=== PATIENT | female | born 1955 | race Hispanic/Latino ===

== ENCOUNTER 2017-08-17 20:00 | Emergency (ER) | payer OTHER ==
[~2017-08-17] VITALS: Ht 157.5 cm; Wt 62.6 kg
[~2017-08-17 20:00] MED LIST: ALPRAZOLAM1 M2 PO; AZITHROMYCIN250 M1 PO; CHERATUSSIN AC118 M1 PO; CYCLOBENZAPRINE10 M1 PO; DICLOFENAC SOD100 G1 TOP; DOXYCYCLINE HY100 M4 PO; GUAIFENESIN DM S5 ML PO; LISINOPRIL-HCT1 EAC2 PO; LOSARTAN POTASS25 M1 PO; PROAIR HFA8.5 GM INH; VITAMIN D31000 UNI2 PO; ZITHROMAX250 M2 PO
--- NOTE | 2017-08-17 20:19 | ED DYSPNEA/ASTHMA COMPLAINT ---
History of Present Illness General Chief Complaint: Wheezing/Asthma Stated Complaint: DIFFICULTY BREATHING Source: patient Exam Limitations: no limitations Vital Signs & Intake/Output Vital Signs & Intake/Output Vital Signs Date Time Temp Pulse Resp B/P B/P Pulse O2 O2 Flow FiO2 Mean Ox Delivery Rate 08/17 2229 98.3 98 18 164/88 97 Room Air 08/17 2228 Room Air 08/17 2004 97.0 101 20 178/90 95 Allergies Coded Allergies: Penicillins (UNKNOWN 06/22/17) Reconcile Medications Codeine Phosphate/Guaifenesi (Cheratussin AC Syrup) 10 MG-100 MG/5 ML LIQUID 10 ML PO Q6-8HR PRN COUGH Losartan Potassium 25 MG TABLET 25 MG PO DAILY blood pressure . Prednisone 10 MG TABLET 1 TAB PO DAILY asthma 4 tabs po x 3 days, 3 tabs po x 3 days, 2 tabs po x 3 days, 1 tab po x 3 days Triage Note: PT TO ED C/O ASTHMA EXACERBATION FOR 2 HRS. ALBUTEROL INH NOT HELPING. INSP/EXP WHEEZES ON AUSCULTATION. INCREASED WOB Triage Nurses Notes Reviewed? yes Onset: Gradual Duration: worse persistent since (2 hours) Timing: recent history Severity: moderate Activities at Onset: none Prior Episodes/Possible Cause: occasional episodes Associated Symptoms: cough HPI: Patient is a 62-year-old female with history of asthma presenting to the emergency department with chief complaint of increasing shortness of breath and wheezing that began 2-3 hours prior to arrival. Recent history similar symptoms. She has been on antibiotics and steroids with relief. She tried using her nebulizer machine prior to arrival without relief in symptoms. Denies chest pain or palpitations. No fevers or chills. She does report that she still coughing slightly from her recent bronchitis. She was also recently diagnosed with a left-sided rib fracture. Denies any increased pain over the left rib. No abdominal pain. No nausea or vomiting. Past History Travel History Traveled to [place] past 21 day No Medical History Any Pertinent Medical History? 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 Hx Contributory? No Review of Systems Review of Systems Constitutional: Reports: no symptoms. Comments Review of systems: See HPI, All other systems negative. Constitutional, no chills fever or weight loss HEENT: No visual changes no sore throat no congestion Cardiovascular: No chest pain ,palpitation , orthopnea or ankle swelling Skin, no jaundice no rashes Respiratory: No sputum or hemoptysis GI: No nausea no vomiting : No dysuria No hematuria Muscle skeletal: no back pain, no neck pain, Neurologic: No numbness no confusion, no headaches Psych: No stress anxiety Immunology: No splenectomy or history of AIDS Physical Exam Physical Exam General Appearance: well developed/nourished, alert, awake, mild distress Respiratory: wheezing Comments: Well-developed well-nourished person in mild to moderate distress HEENT:Pupils equally round and reactive to light and accommodation. Nose is atraumatic. External auditory canal and Tympanic membranes clear. Pharynx normal. No swelling or edema. Neck: Supple, no lymphadenopathy Back: Nontender Cardiovascular: Regular rate and rhythms no murmurs rubs or gallops Respiratory: Chest nontender. Moderate respiratory distress.diffuse inspiratory and expiratory wheezing to auscultation bilaterally Extremity: No edema, no calf tenderness to palpation, normal and equal pulses. Neuro: Alert oriented x3 Skin: No appreciable rash on exposed skin, skin is warm and dry. Psych: Mood and affect is normal, memory and judgment is normal. Core Measures ACS in differential dx? Yes CVA/TIA Diagnosis No Sepsis Present: No Sepsis Focused Exam Completed? No Progress Differential Diagnosis: asthma, bronchitis, costochondritis, CHF, COPD, pneumonia Plan of Care: Orders Procedure Date/time Status Telemetry/Ranch Helper 08/17 2018 Active TROPONIN LEVEL 08/17 2018 Complete MAGNESIUM 08/17 2018 Complete COMPREHENSIVE METABOLIC PANEL 08/17 2018 Complete CBC WITHOUT DIFFERENTIAL 08/17 2018 Complete EKG 08/17 2018 Active Current Medications Sig/Vanessa Start time Last Medication Dose Stop Time Status Admin Magnesium Sulfate 1 GM ONCE ONE 08/17 2029 AC 08/17 (Mag Sulfate in D5) 08/18 0029 2121 Dextrose/Water 100 ML (D5W) Laboratory Tests 08/17/172051: Anion Gap 16, Estimated GFR > 60, BUN/Creatinine Ratio 18.6, Glucose 159 H, Calcium 9.7, Magnesium 1.8, Total Bilirubin 0.5, AST 31, ALT 51, Alkaline Phosphatase 126, Troponin I < 0.01, Total Protein 7.7, Albumin 4.5, Globulin 3.2 , Albumin/Globulin Ratio 1.4, CBC w Diff NO MAN DIFF REQ, RBC 4.75, MCV 87.3, MCH 29.3, RDW 14.8 H, MPV 8.6, Gran % 45.7, Lymphocytes % 38.3, Monocytes % 4.1 , Eosinophils % 11.0 H, Basophils % 0.9, Absolute Granulocytes 4.6, Absolute Lymphocytes 3.8 H, Absolute Monocytes 0.4, Absolute Eosinophils 1.1, Absolute Basophils 0.1, PUBS MCHC 33.5 Patient feeling much improved after IV Solu-Medrol, IV magnesium, breathing treatment. Ambulatory oxygen saturation is around 97%. Lungs clear to auscultation after medications. Patient discharged, she'll follow-up with her primary care physician. Patient nontoxic. Diagnostic Imaging: Viewed by Me: Radiology Read. Discussed w/RAD: Radiology Read. Radiology Impression: PATIENT: VON AKBAR PRESENT AGE: 62 PATIENT ACCOUNT NO: [id number] : 54 LOCATION: [facility] ORDERING PHYSICIAN: Kirti CEDILLO SERVICE DATE: 08/17/17 EXAM TYPE: RAD - XRY-CHEST XRAY, TWO VIEWS EXAMINATION: XR CHEST CLINICAL INFORMATION: Worsening cough, wheeze COMPARISON: 08/13/2017 TECHNIQUE: 2 views of the chest were obtained. FINDINGS: Coarse interstitial prominence. No focal consolidation or mass. No pleural effusion or pneumothorax. Tortuous aorta. Normal heart size. Multilevel degenerative changes of the thoracic spine. Healing left rib fractures. IMPRESSION: No acute pulmonary disease. Chronic prominence of the pulmonary interstitium. DICTATED BY: Darvin Bright MD DATE/TIME DICTATED:04/26 HOSPICE CLINICAL MARKETER:PENELOPE DATE/TIME TRANSCRIBED:08/17/172148 CONFIDENTIAL, DO NOT COPY WITHOUT APPROPRIATE AUTHORIZATION. <Electronically signed in Other Vendor System> SIGNED BY: Darvin Bright MD 08/17/172152 Initial ED EKG: NSR Departure Departure Time of Disposition: 2225 Disposition: HOME OR SELF CARE Condition: Stable Clinical Impression Primary Impression: Bronchitis Referrals: Gorge CEDILLO,Bev Berman (PCP/Family) Additional Instructions: Follow-up with your primary care physician in the next 5-7 days. Take prednisone taper as prescribed. Continue using inhaler as previously directed. Departure Forms: Customer Survey General Discharge Information Prescriptions: Current Visit Scripts Prednisone 1 TAB PO DAILY #30 TAB 4 tabs po x 3 days, 3 tabs po x 3 days, 2 tabs po x 3 days, 1 tab po x 3 days Critical Care Note Critical Care Note Critical Care Time: non-applicable
[2017-08-17 21:02] LABS: ABSOLUTE BASOPHIL COUNT 0.1 /CUMM (0.0-0.2); ABSOLUTE EOSINOPHIL COUNT 1.1 /CUMM (0.0-0.7); ABSOLUTE GRANULOCYTE CT 4.6 /CUMM (1.4-6.5); ABSOLUTE LYMPH COUNT 3.8 /CUMM (1.2-3.4); ABSOLUTE MONOCYTE COUNT 0.4 /CUMM (0.10-0.60); BASOPHIL % 0.9 % (0.0-2.0); GRANULOCYTE % 45.7 % (42.2-75.2); HEMATOCRIT 41.5 % (37-47); MEAN CORPUSCULAR HGB 29.3 PG (27.0-31.0); MEAN CORPUSCULAR HGB CONC 33.5 G/DL (33.0-37.0); MEAN CORPUSCULAR VOLUME 87.3 FL (81.0-99.0); MEAN PLATELET VOLUME 8.6 FL (7.4-10.4); PLATELET COUNT 251 /CUMM (130-400); RBC DISTRIBUTION WIDTH 14.8 % (11.5-14.5); RED BLOOD CELL CT 4.75 /CUMM (4.20-5.40)
--- NOTE | 2017-08-17 21:53 | RADIOLOGY REPORT ---
EXAMINATION: XR CHEST CLINICAL INFORMATION: Worsening cough, wheeze COMPARISON: 08/13/2017 TECHNIQUE: 2 views of the chest were obtained. FINDINGS: Coarse interstitial prominence. No focal consolidation or mass. No pleural effusion or pneumothorax. Tortuous aorta. Normal heart size. Multilevel degenerative changes of the thoracic spine. Healing left rib fractures. IMPRESSION: No acute pulmonary disease. Chronic prominence of the pulmonary interstitium.
[2017-08-17 22:30] VITALS: BP 164/88
[2017-08-17] MEDS ORDERED: PREDNISONE10 M2 PO (22:31)
== END 2017-08-17 22:32 ==
LOC: ERH 20:00
PROVIDERS: Physician Assistant
DX: J40 Bronchitis, not specified as acute or chronic (principal); I10 Essential (primary) hypertension
CPT/HCPCS: 71046; 93005; 93010; 96374; 96375; J2930